=== PATIENT | male | born 1955 | race Caucasian/White ===

== ENCOUNTER 2021-10-26 04:28 | Inpatient (IN) | payer MEDICARE, OTHER ==
[2021-10-26] MEDS ORDERED: SODIUM CHLORIDE 0.9% 1,000 ML IV STA (04:31)
[2021-10-26] MEDS ORDERED: KETOROLAC 15 MG/ML 1 ML VIAL IVP STA (04:31)
--- NOTE | 2021-10-26 04:32 | ED ---
SOB HPI - General Stated Complaint: Shortness of Breath Time Seen by Provider: 10/26/21 04:30 Source: RN notes reviewed, old records reviewed Mode of arrival: EMS Limitations: no limitations - History of Present Illness Initial Comments: This is a 65-year-old male in some significant distress. Patient is very anxious shaky with shortness of breath. Having difficulty breathing that started earlier today, patient is a cigarette for alcohol withdrawal, 2 days coming off benzodiazepines. Patient is nauseous without vomiting feel sweaty without chest pain. Patient is without fevers. Unsure if he has coronavirus exposure not. No nausea vomiting or diarrhea currently. MD Complaint: shortness of breath, "asthma attack", anxiety -: hour(s) Radiation: back Severity scale (1-10): 7 Quality: throbbing Consistency: constant Improves With: nothing Worsens With: exertion, movement Known History Of: COPD, asthma Context: recent URI, anxiety, recent illness Associated Symptoms: fever, cough, nausea/vomiting Treatments Prior to Arrival: none - Related Data Home Medications Medication Instructions Recorded Confirmed Acetaminophen Tab [Tylenol] 650 mg PO Q4H PRN MDD 3 doses 10/26/21 10/26/21 Albuterol Nebulized [Ventolin 2.5 mg INHALATION RT-Q6H PRN 10/26/21 10/26/21 Nebulized] Apixaban [Eliquis] 5 mg PO BID 10/26/21 10/26/21 Calcium/Mag/Zinc/D 1 tab PO TID PRN 10/26/21 10/26/21 Chlorpheniramine Maleate 4 mg PO Q4H PRN 10/26/21 10/26/21 [Chlor-Trimeton] Furosemide [Lasix] 20 mg PO BID 10/26/21 10/26/21 Ibuprofen [Motrin Ib] 600 mg PO Q6H PRN 10/26/21 10/26/21 LORazepam [Ativan] 1 - 2 mg PO DIRECTED 10/26/21 10/26/21 Loperamide HCl [Imodium A-D] 4 mg PO QID PRN MDD 8 tablets 10/26/21 10/26/21 Metoprolol Succinate [Toprol XL] 25 mg PO DAILY 10/26/21 10/26/21 Multivitamins, Thera [Multivitamin 1 tab PO DAILY 10/26/21 10/26/21 (formulary)] Omeprazole [PriLOSEC] 20 mg PO BID 10/26/21 10/26/21 Ondansetron HCl [Zofran] 4 mg PO Q6H PRN 10/26/21 10/26/21 Pantoprazole Sodium [Protonix] 40 mg PO DAILY 10/26/21 10/26/21 Thiamine [Vitamin B-1] 100 mg PO DAILY 10/26/21 10/26/21 amLODIPine [Norvasc] 5 mg PO DAILY 10/26/21 10/26/21 busPIRone HCl [Buspar] 5 mg PO TID 10/26/21 10/26/21 cloNIDine HCL [Catapres] 0.1 - 0.3 mg PO DIRECTED PRN 10/26/21 10/26/21 traZODone HCL [Desyrel] 50 - 150 mg PO HS PRN 10/26/21 10/26/21 Allergies Allergy/AdvReac Type Severity Reaction Status Date / Time No Known Allergies Allergy Verified 10/26/21 07:08 Review of Systems ROS Statement: Those systems with pertinent positive or pertinent negative responses have been documented in the HPI. ROS Other: All systems not noted in ROS Statement are negative. General Exam General appearance: alert, in no apparent distress, anxious, in distress, cachectic Head exam: Present: atraumatic, normocephalic, normal inspection Eye exam: Present: normal appearance, PERRL, EOMI. Absent: scleral icterus, conjunctival injection, periorbital swelling ENT exam: Present: normal exam, mucous membranes moist Neck exam: Present: normal inspection. Absent: tenderness, meningismus, lymphadenopathy Respiratory exam: Present: respiratory distress, wheezes, accessory muscle use, decreased breath sounds, prolonged expiratory. Absent: rales, rhonchi, stridor Cardiovascular Exam: Present: regular rate, normal rhythm, normal heart sounds. Absent: systolic murmur, diastolic murmur, rubs, gallop, clicks GI/Abdominal exam: Present: soft, normal bowel sounds. Absent: distended, tenderness, guarding, rebound, rigid Extremities exam: Present: normal inspection, full ROM, normal capillary refill. Absent: tenderness, pedal edema, joint swelling, calf tenderness Back exam: Present: normal inspection Neurological exam: Present: alert, oriented X3, CN II-XII intact Psychiatric exam: Present: normal affect, normal mood Skin exam: Present: warm, dry, intact, normal color. Absent: rash Course Vital Signs 10/26/21 10/26/21 10/26/21 04:31 04:37 05:00 Temperature Pulse Rate 123 H 105 H Pulse Rate [ Pulse Oximetery ] Respiratory 34 H 32 H Rate Blood Pressure 146/102 Blood Pressure [Left Arm] O2 Sat by Pulse 93 L 94 L 95 Oximetry 10/26/21 10/26/21 10/26/21 05:10 05:26 05:44 Temperature Pulse Rate 98 92 Pulse Rate [ Pulse Oximetery ] Respiratory 22 Rate Blood Pressure Blood Pressure [Left Arm] O2 Sat by Pulse Oximetry 10/26/21 10/26/21 10/26/21 06:00 06:44 08:00 Temperature 97.6 F Pulse Rate 90 Pulse Rate [ 64 Pulse Oximetery ] Respiratory 20 26 H 18 Rate Blood Pressure 121/86 Blood Pressure 120/60 [Left Arm] O2 Sat by Pulse 97 98 Oximetry 10/26/21 10/26/21 10/26/21 08:29 08:38 14:10 Temperature 98.6 F Pulse Rate 104 H 104 H Pulse Rate [ 78 Pulse Oximetery ] Respiratory 18 Rate Blood Pressure Blood Pressure 132/91 [Left Arm] O2 Sat by Pulse 98 Oximetry 10/26/21 10/26/21 15:52 16:14 Temperature Pulse Rate 92 96 Pulse Rate [ Pulse Oximetery ] Respiratory Rate Blood Pressure Blood Pressure [Left Arm] O2 Sat by Pulse Oximetry - Reevaluation(s) Reevaluation #1: 10/26/21 05:50 Medical record is reviewed Reevaluation #2: 10/26/21 Patient symptoms are improved with breathing treatments here in the ER although still severe shortness of breath Patient informed results and questions answered Medical Decision Making - Medical Decision Making 65 male presenting to the emergency department today. Patient resents today for severe shortness of breath severe asthmatic COPD exacerbation. Hypoxia. Patient will be admitted for further monitoring and care - Lab Data Result diagrams: 10/26/21 04:51 10/26/21 04:41 Lab Results 10/26/21 10/26/21 10/26/21 Range/Units 04:41 04:51 04:51 WBC 7.8 (3.8-10.6) k/uL RBC 3.48 L (4.30-5.90) m/uL Hgb 11.6 L (13.0-17.5) gm/dL Hct 35.9 L (39.0-53.0) % MCV 103.2 H (80.0-100.0) fL MCH 33.5 (25.0-35.0) pg MCHC 32.4 (31.0-37.0) g/dL RDW 14.2 (11.5-15.5) % Plt Count 201 (150-450) k/uL MPV 8.3 Neutrophils % 76 % Lymphocytes % 11 % Monocytes % 9 % Eosinophils % 2 % Basophils % 0 % Neutrophils # 5.9 (1.3-7.7) k/uL Lymphocytes # 0.9 L (1.0-4.8) k/uL Monocytes # 0.7 (0-1.0) k/uL Eosinophils # 0.1 (0-0.7) k/uL Basophils # 0.0 (0-0.2) k/uL Macrocytosis Slight PT 10.9 (9.0-12.0) sec INR 1.0 (<1.2) APTT 27.1 (22.0-30.0) sec D-Dimer 0.82 H (<0.60) mg/L FEU Sodium 136 L (137-145) mmol/L Potassium 4.3 (3.5-5.1) mmol/L Chloride 110 H (98-107) mmol/L Carbon Dioxide 25 (22-30) mmol/L Anion Gap 1 mmol/L BUN 23 H (9-20) mg/dL Creatinine 0.91 (0.66-1.25) mg/dL Est GFR (CKD-EPI)AfAm >90 (>60 ml/min/1.73 sqM) Est GFR (CKD-EPI)NonAf 88 (>60 ml/min/1.73 sqM) Glucose 110 H (74-99) mg/dL Lactic Ac Sepsis Rflx Plasma Lactic Acid Ravin (0.7-2.0) mmol/L Calcium 8.3 L (8.4-10.2) mg/dL Magnesium 1.4 L (1.6-2.3) mg/dL Ferritin 145.0 (22.0-322.0) ng/mL Total Bilirubin 1.1 (0.2-1.3) mg/dL AST 59 (17-59) U/L ALT 48 (4-49) U/L Alkaline Phosphatase 122 (38-126) U/L Lactate Dehydrogenase 569 (313-618) U/L C-Reactive Protein 2.5 H (<1.0) mg/dL NT-Pro-B Natriuret Pep pg/mL Total Protein 5.9 L (6.3-8.2) g/dL Albumin 3.0 L (3.5-5.0) g/dL 10/26/21 10/26/21 10/26/21 Range/Units 04:51 04:51 05:36 WBC (3.8-10.6) k/uL RBC (4.30-5.90) m/uL Hgb (13.0-17.5) gm/dL Hct (39.0-53.0) % MCV (80.0-100.0) fL MCH (25.0-35.0) pg MCHC (31.0-37.0) g/dL RDW (11.5-15.5) % Plt Count (150-450) k/uL MPV Neutrophils % % Lymphocytes % % Monocytes % % Eosinophils % % Basophils % % Neutrophils # (1.3-7.7) k/uL Lymphocytes # (1.0-4.8) k/uL Monocytes # (0-1.0) k/uL Eosinophils # (0-0.7) k/uL Basophils # (0-0.2) k/uL Macrocytosis PT (9.0-12.0) sec INR (<1.2) APTT (22.0-30.0) sec D-Dimer (<0.60) mg/L FEU Sodium (137-145) mmol/L Potassium (3.5-5.1) mmol/L Chloride (98-107) mmol/L Carbon Dioxide (22-30) mmol/L Anion Gap mmol/L BUN (9-20) mg/dL Creatinine (0.66-1.25) mg/dL Est GFR (CKD-EPI)AfAm (>60 ml/min/1.73 sqM) Est GFR (CKD-EPI)NonAf (>60 ml/min/1.73 sqM) Glucose (74-99) mg/dL Lactic Ac Sepsis Rflx Y Plasma Lactic Acid Ravin 2.4 H* (0.7-2.0) mmol/L Calcium (8.4-10.2) mg/dL Magnesium (1.6-2.3) mg/dL Ferritin (22.0-322.0) ng/mL Total Bilirubin (0.2-1.3) mg/dL AST (17-59) U/L ALT (4-49) U/L Alkaline Phosphatase (38-126) U/L Lactate Dehydrogenase (313-618) U/L C-Reactive Protein (<1.0) mg/dL NT-Pro-B Natriuret Pep 93042 pg/mL Total Protein (6.3-8.2) g/dL Albumin (3.5-5.0) g/dL - EKG Data -: EKG Interpreted by Me (EKG shows sinus tachycardia 128 LA 142 QRS 104 QTc 455) - Radiology Data Radiology results: report reviewed (Chest x-ray CT chest negative for PE), image reviewed Critical Care Time Critical Care Time: Yes Total Critical Care Time: 31 Disposition Clinical Impression: Congestive heart failure, Acute exacerbation of chronic obstructive pulmonary disease, Hypoxia, Tachycardia, Anxiety Disposition: ADMITTED IP TO THIS HOSP Condition: Fair Is patient prescribed a controlled substance at d/c from ED?: No
[2021-10-26] MEDS ORDERED: IPRATROPIUM-ALBUTEROL 3 ML NEB INHALATION STA ×2 (04:52→06:27)
[2021-10-26] MEDS ORDERED: LORazepam 2 MG/ML INJ IV STA (04:52)
[2021-10-26] MEDS ORDERED: DIAZEPAM 5 MG/ML 2 ML INJ IVP STA (04:52)
[2021-10-26] MEDS ORDERED: methylPREDNISolone SOD SUCCI 125 MG/2 ML VIAL IV STA (04:53)
[2021-10-26] MEDS ORDERED: SODIUM CHLORIDE 0.9% 500 ML 500 ML IV STA (04:53)
[2021-10-26 05:10] LABS: Basophils % (A) 0 %; Eosinophils # (A) 0.1 k/uL (0-0.7); Eosinophils % (A) 2 %; HCT 35.9 % (39.0-53.0); HGB 11.6 gm/dL (13.0-17.5); Lymphocytes # (A) 0.9 k/uL (1.0-4.8); Lymphocytes % (A) 11 %; MCH 33.5 pg (25.0-35.0); MCHC 32.4 g/dL (31.0-37.0); MCV 103.2 fL (80.0-100.0); Macrocytosis Slight; Mean Platelet Volume 8.3; Monocytes # (A) 0.7 k/uL (0-1.0); Monocytes % (A) 9 %; Neutrophils # (A) 5.9 k/uL (1.3-7.7); Neutrophils % (A) 76 %; Platelet Count 201 k/uL (150-450); RBC 3.48 m/uL (4.30-5.90); RDW 14.2 % (11.5-15.5); WBC 7.8 k/uL (3.8-10.6)
[2021-10-26 05:24] LABS: Partial Thromboplastin Time 27.1 sec (22.0-30.0); Prothrombin Time 10.9 sec (9.0-12.0)
[2021-10-26 06:08] LABS: ALT 48 U/L (4-49); AST 59 U/L (17-59); African American GFR (CKD) >90 (>60 ml/min/1.73 sqM); Alkaline Phosphatase 122 U/L (38-126); Anion Gap 1 mmol/L; Blood Urea Nitrogen 23 mg/dL (9-20); Calcium 8.3 mg/dL (8.4-10.2); Carbon Dioxide 25 mmol/L (22-30); Chloride 110 mmol/L (98-107); Glucose 110 mg/dL (74-99); LDH 569 U/L (313-618); Magnesium 1.4 mg/dL (1.6-2.3); Non-African American GFR(CKD) 88 (>60 ml/min/1.73 sqM); Potassium 4.3 mmol/L (3.5-5.1); Sodium 136 mmol/L (137-145); Total Bilirubin 1.1 mg/dL (0.2-1.3); Total Protein 5.9 g/dL (6.3-8.2)
--- NOTE | 2021-10-26 06:08 | XR ---
EXAMINATION TYPE: XR chest 1V portable DATE OF EXAM: 10/26/2021 COMPARISON: NONE HISTORY: Cough TECHNIQUE: Single view FINDINGS: Heart is enlarged. There is coarse interstitial density in the mid and lower lung dorsey. T here is left axillary pacemaker. No definite pleural fluid seen. There are chest leads. IMPRESSION: Cardiomegaly. Pulmonary lower lobe predominantly interstitial infiltrates suggestive of s ome pneumonia. There is probably COPD. No obvious heart failure.
[2021-10-26] MEDS: SODIUM CHLORIDE 0.9% 1,000 ML IV SCH ×3 (06:16→21:01)
[2021-10-26] MEDS ORDERED: NALOXONE 0.4 MG/ML 1 ML VIAL IV PRN (06:27)
[2021-10-26] MEDS ORDERED: MORPHINE SULFATE 4 MG/ML SYRINGE IV PRN (06:27)
[2021-10-26] MEDS ORDERED: AZITHROMYCIN 500 MG in SODIUM CHLORIDE 0.9% 250 ML IVPB STA (06:31)
[2021-10-26] MEDS ORDERED: FUROSEMIDE 10 MG/ML 4 ML VIAL IV STA (06:31)
--- NOTE | 2021-10-26 07:45 | CT ---
CT CHEST FOR PULMONARY EMBOLISM. EXAMINATION TYPE: CT angio chest DATE OF EXAM: 10/26/2021 INDICATION: COVID +, Shortness of Breath CT DLP: 322.4 mGycm, Automated exposure control for dose reduction was used. CONTRAST: Patient injected with 87 ml mL of Isovue 370. COMPARISON: None TECHNIQUE: CT of the chest is performed on a spiral scan at 2 mm thick sections. Study is performed with intravenous contrast timed for evaluation for pulmonary embolism. This will limit additional po rtions of the evaluation. 3-D MIP images reconstructed by the technologist are reviewed on the compu ter in the coronal and sagittal planes. FINDINGS: No persistent filling defects are evident to suggest an acute pulmonary embolism. No mediastinal or hilar adenopathy enlarged by CT criteria is evident. The ascending aorta diameter at the level of the main pulmonary artery is 4.0 cm. The main pulmonary artery diameter at the bifur cation is 3.9 cm. Advanced emphysematous changes are evident. Minimal bilateral pleural effusions are present. Limited CT section through the upper abdomen are unremarkable. IMPRESSIONS: 1. No acute pulmonary emboli. 2. Minimal bilateral pleural effusions. 3. Advanced emphysematous changes
[2021-10-26] MEDS: ALBUTEROL NEBULIZED 2.5 MG/3 ML INHALATION SCH ×4 (08:25→19:40)
[2021-10-26 09:33] LABS: C Reactive Protein 2.5 mg/dL (<1.0)
[2021-10-26] MEDS: methylPREDNISolone SOD SUCCI 125 MG/2 ML VIAL IV SCH ×2 (11:24→18:04)
[2021-10-26] MEDS: LORazepam 2 MG/ML INJ IV PRN ×2 (14:09→21:02)
[2021-10-26] MEDS ORDERED: cloNIDine HCL 0.1 MG TAB PO PRN (15:54)
[2021-10-26] MEDS ORDERED: MAGNESIUM OXIDE 400 MG TAB PO STA (15:56)
--- NOTE | 2021-10-26 16:34 | HP ---
HISTORY AND PHYSICAL HISTORY OF PRESENT ILLNESS: 65-year-old white male, very anxious, shaky, shortness of breath, started today. He is a cigarette smoker, alcohol withdrawal, 2 days off coming off benzo's. He has nausea without vomiting, feels sweaty without chest pain without fevers. CT of his chest for chest pain shows significant emphysema. No aneurysms. He is admitted with hypoxemic respiratory failure, possible tracheobronchitis. REVIEW OF SYMPTOMS: 14-point review of systems otherwise negative. PHYSICAL EXAMINATION: He is alert, anxious. He is in some respiratory distress. Normocephalic, atraumatic. Pupils equal, round, reactive. ENT normal. Respiratory: Accessory muscle use. Prolonged expiratory. Cardiovascular: Regular rate. GI soft, nontender. Extremities: No cyanosis, clubbing, edema. Back: Normal inspection. Neurologic: Alert and oriented x3. Psych: Fair mood and affect. Skin: Warm and dry. Respiratory rate 22-34, pulse is 98-123, O2 94, hemoglobin 11.6, white count 7.8. ASSESSMENT AND PLAN: 1. Acute hypoxemic respiratory failure secondary to chronic obstructive pulmonary disease exacerbation. 2. Possible tracheobronchitis. 3. Hypomagnesemia. 4. Hypoalbuminemia. 5. Alcohol abuse. 6. Elevated D-dimer. 7. Negative for pulmonary embolism on CT scan of the chest. 8. Lactic acidosis secondary to dehydration. 9. Tracheobronchitis. 10.Alcohol withdrawal. 11.Metabolic acidosis. 12.Prognosis guarded. MMODL / IJN: [id number] /
[2021-10-26] MEDS: FUROSEMIDE 20 MG TAB PO SCH (16:44)
[2021-10-26] MEDS: busPIRone HCl 5 MG TAB PO SCH ×2 (16:45→21:01)
[2021-10-26] MEDS: traZODone HCL 50 MG TAB PO PRN (21:01)
[2021-10-26] MEDS: APIXABAN 5 MG TAB PO SCH (21:01)
[2021-10-27] MEDS: methylPREDNISolone SOD SUCCI 125 MG/2 ML VIAL IV SCH ×5 (00:35→23:11)
[2021-10-27] MEDS: SODIUM CHLORIDE 0.9% 1,000 ML IV SCH ×5 (05:11→23:04)
[2021-10-27] MEDS: LORazepam 2 MG/ML INJ IV PRN ×3 (07:12→21:15)
[2021-10-27] MEDS: AZITHROMYCIN 500 MG in SODIUM CHLORIDE 0.9% 250 ML IVPB SCH (07:26)
[2021-10-27] MEDS: FUROSEMIDE 20 MG TAB PO SCH (07:27)
[2021-10-27] MEDS: MULTIVITAMINS, THERA 1 EACH TAB PO SCH (07:27)
[2021-10-27] MEDS: busPIRone HCl 5 MG TAB PO SCH ×3 (07:27→21:04)
[2021-10-27] MEDS: APIXABAN 5 MG TAB PO SCH ×2 (07:27→19:58)
[2021-10-27] MEDS ORDERED: IBUPROFEN 600 MG TAB PO PRN (08:08)
[2021-10-27] MEDS ORDERED: ONDANSETRON 4 MG TAB PO PRN (08:08)
[2021-10-27] MEDS: PANTOPRAZOLE 40 MG TABLET PO SCH (08:22)
[2021-10-27] MEDS: THIAMINE 100 MG TAB PO SCH (08:22)
[2021-10-27] MEDS: ALBUTEROL NEBULIZED 2.5 MG/3 ML INHALATION SCH ×4 (08:49→20:35)
[2021-10-27 08:58] LABS: Basophils # (A) 0 X 10*3/uL (0.00-0.10); Basophils % (A) 0 %; Eosinophils # (A) 0 X 10*3/uL (0.04-0.35); Eosinophils % (A) 0 %; HCT 32.8 % (39.6-50.0); HGB 10.3 g/dL (13.0-17.0); Lymphocytes # (A) 0.26 X 10*3/uL (0.90-5.00); Lymphocytes % (A) 4.2 %; MCH 32.4 pg (27.0-32.0); MCHC 31.4 g/dL (32.0-37.0); MCV 103.1 fL (80.0-97.0); Monocytes # (A) 0.43 X 10*3/uL (0.20-1.00); Monocytes % (A) 6.9 %; Neutrophils # (A) 5.49 X 10*3/uL (1.80-7.70); Neutrophils % (A) 88.4 %; Platelet Count 214 X 10*3/uL (140-440); RBC 3.18 X 10*6/uL (4.40-5.60); RDW 14.7 % (11.5-14.5); WBC 6.21 X 10*3/uL (4.50-10.00)
[2021-10-27] MEDS ORDERED: amLODIPine 5 MG TAB PO SCH (09:00)
[2021-10-27] MEDS ORDERED: METOPROLOL SUCCINATE (ER) 25 MG TAB.ER.24H PO SCH (09:00)
[2021-10-27] MEDS: METOPROLOL TARTRATE 50 MG TAB PO SCH ×2 (09:41→19:58)
[2021-10-27] MEDS: FUROSEMIDE 10 MG/ML 4 ML VIAL IV SCH ×2 (09:51→20:00)
--- NOTE | 2021-10-27 10:15 | ECHOF ---
Referral Reason:chf MEASUREMENTS -------- HEIGHT: 180.3 cm WEIGHT: 65.8 kg BP: IVSd: 0.9 cm (0.6 - 1.1) LVIDd: 7.0 cm (3.9 - 5.3) LVPWd: 1.5 cm (0.6 - 1.1) IVSs: 0.9 cm LVIDs: 6.7 cm LVPWs: 1.2 cm Ao Diam: 3.8 cm (2.0 - 3.7) AV Cusp: 1.4 cm (1.5 - 2.6) LA Diam: 3.0 cm (2.7 - 3.8) MV EXCURSION: 11.540 mm (> 18.000) MV EF SLOPE: 77 mm/s (70 - 150) EPSS: 4.8 cm MV E Jose: 0.87 m/s MV DecT: 152 ms MV A Jose: 0.47 m/s MV E/A Ratio: 1.83 RAP: 5.00 mmHg RVSP: 26.20 mmHg FINDINGS -------- AICD This was a technically good study. The left ventricle is severely dilated. Left ventricular wall thickness is normal. There is sever e global hypokinesis of LV . Overall left ventricular systolic function is severely impaired with, an EF < 20%. The right ventricle is normal in size. The left atrial size is normal. The right atrial size is normal. The aortic valve is trileaflet and appears structurally normal. The mitral valve is normal. Mild mitral regurgitation is present. The tricuspid valve appears structurally normal. Mild tricuspid regurgitation present. Right vent ricular systolic pressure is normal at < 35 mmHg. There is no pulmonic regurgitation present. The aortic root size is normal. Normal inferior vena cava with normal inspiratory collapse consistent with estimated right atrial pre ssure of 5 mmHg. There is no pericardial effusion. CONCLUSIONS -------- 1. AICD 2. The left ventricle is severely dilated. 3. Left ventricular wall thickness is normal. 4. There is severe global hypokinesis of LV . 5. Overall left ventricular systolic function is severely impaired with, an EF < 20%. 6. Mild mitral regurgitation is present. 7. Mild tricuspid regurgitation present. 8. There is no pericardial effusion. PAINT SPRAYER SANDBLASTER: Shari Vásquez RDCS
[2021-10-27 10:28] LABS: ALT 45 U/L (10-49); AST 32 U/L (14-35); African American GFR (CKD) 108.3 (60.0-200.0); Albumin 3.5 g/dL (3.8-4.9); Alkaline Phosphatase 111 U/L (41-126); BUN/Creat Ratio 26.15 Ratio (12.00-20.00); Blood Urea Nitrogen 21.1 mg/dL (9.0-27.0); Calcium 8.3 mg/dL (8.7-10.3); Carbon Dioxide 20.5 mmol/L (20.0-27.5); Chloride 109 mmol/L (96-109); Globulin 2.3 g/dL (1.6-3.3); Glucose 143 mg/dL (70-110); Non-African American GFR(CKD) 93.4 (60.0-200.0); Potassium 4.2 mmol/L (3.5-5.5); Sodium 141 mmol/L (135-145); Total Bilirubin <0.20 mg/dL (0.30-1.20); Total Protein 5.8 g/dL (6.2-8.2)
--- NOTE | 2021-10-27 10:50 | PN ---
PROGRESS NOTE Patient came in with shortness of breath, cough, congestion, history of COPD, recurrent tracheobronchitis. He is saturating 96% on 3 L. Blood pressure 132/78, pulse is low 100s, temp 97 to 98, respiratory 16 to 18. Lungs are mostly clear. Cardiovascular S1, S2. Hematology negative Homans. Psych: Fair mood and affect. ASSESSMENT: 1. History of erosive esophagitis and Gurrola's esophagus. 2. Chronic obstructive pulmonary disease exacerbation. 3. He has history of gastroesophageal reflux disease. 4. Nicotine addiction. 5. Alcohol addiction. Before she goes to [place], lactic acidosis improved. Current lactic acid 1.6. Elevated D-dimer. CT scan is negative for pneumonia or pulmonary embolism. Continue with treatment with steroids, updraft treatments. He is COVID negative. BNP is 43,300. Await for Cardiology recommendations. Possible diastolic heart failure, possibly run an echo. Get cardiology's recommendations. At this point prognosis guarded. MMODL / IJN: [id number] /
[2021-10-27] MEDS: SACUBITRIL/VALSARTAN 24 MG-26 MG TABLET PO SCH ×2 (11:05→19:59)
--- NOTE | 2021-10-27 12:17 | CONS ---
CONSULTATION Sarabjit Lindsey is a 65-year-old gentleman who generally has his health care in the [place] area. He was in [facility] under the care of a sat tutor whose name he does not recall. He came into the hospital anxious, shaky, short of breath, and indicated that he drinks alcohol quite a bit and smokes regularly and also coming off benzodiazepines. He feels he is having withdrawal, was nauseous and shaky. After arrival he complained of continued shortness of breath. On probing further, his history suggests that of heart failure. He had a defibrillator placed 3 to 4 months ago and takes Entresto. However, at the time of my evaluation he is anxious, slightly tremulous, but definitely not in any distress. He has no chest pain or shortness of breath. PAST MEDICAL HISTORY: Based on available information, which is not very extensive, he has what seems to be nonischemic cardiomyopathy with a defibrillator. He also has alcoholism, smoking, COPD, bronchial asthma. MEDICATIONS: Medications at home include Entresto, Eliquis 5 mg b.i.d., Lasix 20 mg b.i.d., metoprolol succinate 25 mg daily. He takes omeprazole, amlodipine 5 mg daily and also takes vitamin supplements and thiamine. ALLERGIES: NONE. REVIEW OF SYSTEMS: Unremarkable other than above-mentioned facts. PHYSICAL EXAMINATION: On examination, blood pressure is 130/70, pulse rate is about 100 per minute and appears to be irregular. HEENT unremarkable. Fundus was not examined by me. Neck is supple. There is no significant JVD. Heart exam reveals S1, S2 with tachycardia, short systolic murmur at left sternal border. No gallops. Lungs reveal bilateral diminished air entry. Abdomen is soft, nontender. Lower extremities reveal diminished pulses. Central nervous system grossly no focal deficits. EKG revealed sinus tachycardia, leftward axis, nonspecific ST and T-wave changes. LABORATORY DATA: His renal function is normal. His BNP is elevated to 43,000, his D-dimer is 0.82. His hemoglobin is 10.3. He had a CT angiogram performed which revealed no evidence of pulmonary embolism, minimal bilateral pleural effusions and advanced emphysematous changes. IMPRESSION: 1. Chronic systolic heart failure. 2. Alcoholism. 3. History of smoking. 4. Patient has a defibrillator; probably nonischemic cardiomyopathy, not verified. RECOMMENDATIONS: I would recommend cautious diuresis with Lasix 40 mg q.12 hours. Will resume Entresto at 24/ b.i.d. Continue apixaban and increase the metoprolol to 50 mg b.i.d. Based on clinical course, we will make further recommendations. Prognosis remains guarded. Patient's PCP/admitting doctor is also cognizant of his alcohol situation and he is following him in that regard. No other intervention, but we will follow him closely. Echocardiogram has been advised. Thank you very much for the consult. PEPE / IJN: [id number] /
[2021-10-27] MEDS ORDERED: FUROSEMIDE 10 MG/ML 2 ML VIAL IV SCH (21:00)
[2021-10-27] MEDS: traZODone HCL 50 MG TAB PO PRN (21:15)
[2021-10-28] MEDS: LORazepam 2 MG/ML INJ IV PRN ×3 (04:33→19:01)
[2021-10-28] MEDS: methylPREDNISolone SOD SUCCI 125 MG/2 ML VIAL IV SCH ×3 (05:41→17:02)
[2021-10-28] MEDS: ALBUTEROL NEBULIZED 2.5 MG/3 ML INHALATION SCH ×4 (07:38→21:28)
[2021-10-28] MEDS: FUROSEMIDE 10 MG/ML 4 ML VIAL IV SCH ×2 (08:22→17:02)
[2021-10-28] MEDS: PANTOPRAZOLE 40 MG TABLET PO SCH ×2 (08:22→08:24)
[2021-10-28] MEDS: APIXABAN 5 MG TAB PO SCH ×2 (08:22→21:40)
[2021-10-28] MEDS: AZITHROMYCIN 500 MG in SODIUM CHLORIDE 0.9% 250 ML IVPB SCH (08:23)
[2021-10-28] MEDS: busPIRone HCl 5 MG TAB PO SCH ×3 (08:24→21:40)
[2021-10-28 09:18] LABS: Basophils % (A) 0 %; Eosinophils % (A) 0 %; HCT 34.7 % (39.0-53.0); Lymphocytes # (A) 0.3 k/uL (1.0-4.8); Lymphocytes % (A) 4 %; MCH 33.5 pg (25.0-35.0); MCHC 31.8 g/dL (31.0-37.0); MCV 105.5 fL (80.0-100.0); Macrocytosis Moderate; Mean Platelet Volume 7.6; Monocytes # (A) 0.5 k/uL (0-1.0); Monocytes % (A) 7 %; Neutrophils # (A) 6.9 k/uL (1.3-7.7); Neutrophils % (A) 88 %; Platelet Count 300 k/uL (150-450); RBC 3.29 m/uL (4.30-5.90); RDW 14.7 % (11.5-15.5); WBC 7.8 k/uL (3.8-10.6)
[2021-10-28] MEDS: MULTIVITAMINS, THERA 1 EACH TAB PO SCH (09:31)
[2021-10-28] MEDS: THIAMINE 100 MG TAB PO SCH (09:31)
[2021-10-28] MEDS: SACUBITRIL/VALSARTAN 24 MG-26 MG TABLET PO SCH (09:31)
[2021-10-28] MEDS: METOPROLOL TARTRATE 50 MG TAB PO SCH ×2 (09:31→21:40)
[2021-10-28 09:53] LABS: ALT 61 U/L (4-49); AST 46 U/L (17-59); African American GFR (CKD) >90 (>60 ml/min/1.73 sqM); Albumin 3.1 g/dL (3.5-5.0); Albumin/Globulin Ratio 1.1; Alkaline Phosphatase 100 U/L (38-126); Anion Gap 6 mmol/L; Blood Urea Nitrogen 25 mg/dL (9-20); Calcium 8.4 mg/dL (8.4-10.2); Carbon Dioxide 25 mmol/L (22-30); Chloride 107 mmol/L (98-107); Globulin 2.9 g/dL; Glucose 182 mg/dL (74-99); Non-African American GFR(CKD) 80 (>60 ml/min/1.73 sqM); Potassium 4.4 mmol/L (3.5-5.1); Sodium 138 mmol/L (137-145); Total Bilirubin 0.3 mg/dL (0.2-1.3)
[2021-10-28] MEDS: SPIRONOLACTONE 25 MG TAB PO SCH (10:06)
[2021-10-28] MEDS: SODIUM CHLORIDE 0.9% 1,000 ML IV SCH ×2 (11:48→20:45)
--- NOTE | 2021-10-28 12:00 | PN ---
PROGRESS NOTE Mr. Lindsey feels a little bit better today. He is slightly less short of breath at rest, but with activity he still has shortness of breath. He remains in sinus rhythm. Heart rate is somewhat slower today compared to yesterday. There is JVD of 1 cm. No carotid bruit. S1-S2 heard normally. Short systolic murmur noted at left sternal border. Lungs reveal fine rales over both bases. Abdomen is soft, nontender. Lower extremities reveal no edema. Central nervous system normal. IMPRESSION: 1. Exacerbation of systolic heart failure in a patient with probable nonischemic cardiomyopathy with history of alcoholism. 2. Paroxysmal atrial fibrillation. RECOMMENDATIONS: I am recommending that we will increase the Lasix to 40 mg IV push q.8 hours and add Aldactone 25 mg daily, continue Entresto and also his metoprolol as before. I will also increase the Entresto to 49/51 and see how he does. Discussed my thoughts in detail with the patient. He has an ICD. Prognosis is poor overall. Patient advised to quit alcohol. MMODL / IJN: [id number] /
--- NOTE | 2021-10-28 19:51 | PN ---
PROGRESS NOTE Sarabjit Lindsey is a 65-year-old white male who came in with cough, congestion, shortness of breath. He has a systolic heart failure with ejection fraction in the low 20s to 30s. They increased his Lasix for exacerbation of systolic heart failure, nonischemic cardiomyopathy, paroxysmal atrial fibrillation. They increased the Lasix to 40 mg IV q.8 hours and Aldactone. Continue on his Entresto, metoprolol. Cardiovascular S1-S2. Lungs clear. GI soft. Hematology negative Homans. Psych fair mood and affect. Assessment . CT of the chest shows pleural effusions, emphysema. No PE. Continue on current treatments. Possibly discharge home once cleared by Cardiology. MMODL / IJN: [id number] /
[2021-10-28] MEDS: traZODone HCL 50 MG TAB PO PRN (21:43)
[2021-10-28] MEDS: SACUBITRIL/VALSARTAN 49 MG-51 MG TABLET PO SCH (21:45)
[2021-10-29] MEDS: FUROSEMIDE 10 MG/ML 4 ML VIAL IV SCH ×3 (00:53→16:42)
[2021-10-29] MEDS: methylPREDNISolone SOD SUCCI 125 MG/2 ML VIAL IV SCH ×4 (00:54→16:42)
[2021-10-29] MEDS: LORazepam 2 MG/ML INJ IV PRN ×4 (01:05→21:41)
[2021-10-29] MEDS: ALBUTEROL NEBULIZED 2.5 MG/3 ML INHALATION SCH ×4 (08:00→20:07)
[2021-10-29] MEDS: THIAMINE 100 MG TAB PO SCH (09:33)
[2021-10-29] MEDS: SACUBITRIL/VALSARTAN 49 MG-51 MG TABLET PO SCH ×2 (09:33→21:42)
[2021-10-29] MEDS: MULTIVITAMINS, THERA 1 EACH TAB PO SCH (09:33)
[2021-10-29] MEDS: APIXABAN 5 MG TAB PO SCH ×2 (09:34→21:42)
[2021-10-29] MEDS: SPIRONOLACTONE 25 MG TAB PO SCH (09:34)
[2021-10-29] MEDS: busPIRone HCl 5 MG TAB PO SCH ×3 (09:34→21:42)
[2021-10-29] MEDS: METOPROLOL TARTRATE 50 MG TAB PO SCH ×2 (09:34→21:42)
[2021-10-29] MEDS: AZITHROMYCIN 500 MG in SODIUM CHLORIDE 0.9% 250 ML IVPB SCH (09:35)
--- NOTE | 2021-10-29 12:13 | PN ---
PROGRESS NOTE Sarabjit is a 65-year-old gentleman with history of ETOH abuse who was at [facility], possible nonischemic cardiomyopathy with severe LV dysfunction, status post AICD and optimal medical therapy for congestive heart failure, who presented to hospital with acute exacerbation of chronic systolic heart failure. He was evaluated by my associate, Dr. Weller, underwent an echocardiogram that showed severe LV systolic dysfunction, and he is currently on intravenous diuretics. He is making slow but steady recovery. He does not have any leg edema. His shortness of breath has improved. On exam today, he is afebrile. Heart rate is 84 beats per minute. Blood pressure is 140/90. Respiratory rate is 18. Oxygen saturation is 91% on 2 L. There is no jugular venous distention. Carotid upstroke is normal. There is no bruit. Chest exam reveals good air entry bilaterally. Heart exam reveals first and second heart sounds. Systolic murmur at the left lower sternal border. Abdomen is soft. Examination of extremities did not reveal any edema. Peripheral pulses are felt. Labs show that hemoglobin is 11, potassium is 4.4, creatinine is 0.9. AST and ALT are elevated. Coronavirus is negative. ASSESSMENT: 1. Acute exacerbation of chronic systolic heart failure. 2. Possible nonischemic cardiomyopathy with severe left ventricular dysfunction. 3. Status post AICD. PLAN: Patient is feeling much better. I will continue him on IV diuretics for another day. Hopefully we can switch him to p.o. Lasix tomorrow. MMODL / IJN: [id number] /
[2021-10-29] MEDS: BUDESONIDE 0.5 MG/2 ML NEBU INHALATION SCH (20:07)
--- NOTE | 2021-10-29 20:51 | PN ---
PROGRESS NOTE 65-year-old white male with alcoholism, systolic CHF, pulmonary fibrosis, tracheobronchitis. Remains on Rocephin, Azithromycin. Cardiology is giving him IV Lasix for systolic heart failure. He remains on Entresto, Aldactone, Lopressor, and Lasix 40 IV q.8h. Seen by gun barrel finisher today. His recommendations. His lungs show a mild wheeze. Cardiovascular S1, S2. Abdomen is soft. Neurologic: Mild tremor. Hemoglobin 11. Potassium 4.4, creatinine 0.9. ASSESSMENT: 1. Acute exacerbation of chronic systolic heart failure. 2. Chronic obstructive pulmonary disease exacerbation. 3. Tracheobronchitis. 4. Status post AICD. 5. Severe LV dysfunction. IV Lasix for another daily, possible go home on oral Lasix tomorrow, possibly. MMODL / IJN: [id number] /
[2021-10-29] MEDS: traZODone HCL 50 MG TAB PO PRN (21:41)
[2021-10-30] MEDS: methylPREDNISolone SOD SUCCI 125 MG/2 ML VIAL IV SCH ×3 (00:22→12:43)
[2021-10-30] MEDS: FUROSEMIDE 10 MG/ML 4 ML VIAL IV SCH ×2 (00:22→08:01)
[2021-10-30] MEDS: AZITHROMYCIN 500 MG in SODIUM CHLORIDE 0.9% 250 ML IVPB SCH (08:01)
[2021-10-30] MEDS: METOPROLOL TARTRATE 50 MG TAB PO SCH ×2 (08:01→21:51)
[2021-10-30] MEDS: PANTOPRAZOLE 40 MG TABLET PO SCH (08:02)
[2021-10-30] MEDS: APIXABAN 5 MG TAB PO SCH ×2 (08:02→21:51)
[2021-10-30] MEDS: SPIRONOLACTONE 25 MG TAB PO SCH (08:02)
[2021-10-30] MEDS: THIAMINE 100 MG TAB PO SCH (08:02)
[2021-10-30] MEDS: SACUBITRIL/VALSARTAN 49 MG-51 MG TABLET PO SCH ×2 (08:03→21:51)
[2021-10-30] MEDS: busPIRone HCl 5 MG TAB PO SCH ×3 (08:03→21:51)
[2021-10-30] MEDS: MULTIVITAMINS, THERA 1 EACH TAB PO SCH (08:03)
[2021-10-30] MEDS: LORazepam 2 MG/ML INJ IV PRN ×2 (08:22→21:52)
[2021-10-30 09:11] LABS: Basophils # (A) 0 X 10*3/uL (0.00-0.10); Basophils % (A) 0 %; Eosinophils # (A) 0 X 10*3/uL (0.04-0.35); Eosinophils % (A) 0 %; HGB 10.6 g/dL (13.0-17.0); Lymphocytes # (A) 0.27 X 10*3/uL (0.90-5.00); Lymphocytes % (A) 6.2 %; MCH 32.8 pg (27.0-32.0); MCHC 33.1 g/dL (32.0-37.0); MCV 99.1 fL (80.0-97.0); Mean Platelet Volume 9.7 fL (9.5-12.2); Monocytes % (A) 9.1 %; Neutrophils # (A) 3.66 X 10*3/uL (1.80-7.70); Neutrophils % (A) 83.6 %; Platelet Count 319 X 10*3/uL (140-440); RBC 3.23 X 10*6/uL (4.40-5.60); RDW 13.9 % (11.5-14.5); WBC 4.38 X 10*3/uL (4.50-10.00)
[2021-10-30 09:40] LABS: ALT 52 U/L (10-49); AST 21 U/L (14-35); African American GFR (CKD) 81.2 (60.0-200.0); Albumin 3.1 g/dL (3.8-4.9); Albumin/Globulin Ratio 1.63 (1.60-3.17); Alkaline Phosphatase 81 U/L (41-126); BUN/Creat Ratio 28.45 Ratio (12.00-20.00); Blood Urea Nitrogen 31.3 mg/dL (9.0-27.0); Calcium 7.9 mg/dL (8.7-10.3); Carbon Dioxide 28.9 mmol/L (20.0-27.5); Chloride 98 mmol/L (96-109); Globulin 1.9 g/dL (1.6-3.3); Glucose 157 mg/dL (70-110); Non-African American GFR(CKD) 70.1 (60.0-200.0); Potassium 3.8 mmol/L (3.5-5.5); Sodium 138 mmol/L (135-145); Total Bilirubin <0.20 mg/dL (0.30-1.20)
[2021-10-30] MEDS: ALBUTEROL NEBULIZED 2.5 MG/3 ML INHALATION SCH ×4 (10:58→18:55)
[2021-10-30] MEDS: BUDESONIDE 0.5 MG/2 ML NEBU INHALATION SCH ×2 (11:00→18:55)
[2021-10-30] MEDS: predniSONE 20 MG TAB PO SCH (12:46)
--- NOTE | 2021-10-30 16:02 | P.PN ---
Progress Note - Text Progress Note Date: 10/30/21 Hospital course: I'm rounding for Dr. Sarabjit Rivera. Admitted with CHF exacerbation. October 30: Sitting up in bed. Oral intake good. Did walk to the bathroom. Breathing much improved. Patient states that his scar is at [place]. No cough. No sputum. Patient's IV Solu-Medrol be changed to oral prednisone. IV Lasix will be changed to by mouth Lasix. Review of systems: Was done for constitutional, cardiovascular, GI, pulmonary. relevant finding as above Active Medications Albuterol Sulfate (Albuterol Nebulized 2.5 Mg/3 Ml) 5 mg INHALATION RT-QID [facility] Last Admin: 10/30/21 15:09 Dose: 5 mg Documented by: Apixaban (Apixaban 5 Mg Tab) 5 mg PO BID [facility]; Protocol Last Admin: 10/30/21 08:02 Dose: 5 mg Documented by: Budesonide (Budesonide 0.5 Mg/2 Ml Nebu) 0.5 mg INHALATION RT-BID [facility] Last Admin: 10/30/21 11:00 Dose: 0.5 mg Documented by: Buspirone HCl (Buspirone Hcl 5 Mg Tab) 5 mg PO TID [facility] Last Admin: 10/30/21 08:03 Dose: 5 mg Documented by: Furosemide (Furosemide 40 Mg Tab) 40 mg PO BID@0900,1600 [facility] Ibuprofen (Ibuprofen 600 Mg Tab) 600 mg PO Q6H PRN PRN Reason: Pain or Fever > 100.5 Lorazepam (Lorazepam 2 Mg/Ml Inj) 1 mg IV Q6HR PRN PRN Reason: Anxiety Last Admin: 10/30/21 08:22 Dose: 1 mg Documented by: Metoprolol Tartrate (Metoprolol Tartrate 50 Mg Tab) 50 mg PO BID [facility] Last Admin: 10/30/21 08:01 Dose: 50 mg Documented by: Multivitamins (Multivitamins, Thera 1 Each Tab) 1 each PO DAILY [facility] Last Admin: 10/30/21 08:03 Dose: 1 each Documented by: Naloxone HCl (Naloxone 0.4 Mg/Ml 1 Ml Vial) 0.2 mg IV Q2M PRN PRN Reason: Opioid Reversal Ondansetron HCl (Ondansetron 4 Mg Tab) 4 mg PO Q6H PRN PRN Reason: Nausea And Vomiting Pantoprazole Sodium (Pantoprazole 40 Mg Tablet) 40 mg PO AC-BRKFST [facility] Last Admin: 10/30/21 08:02 Dose: 40 mg Documented by: Prednisone (Prednisone 20 Mg Tab) 40 mg PO DAILY [facility] Last Admin: 10/30/21 12:46 Dose: 40 mg Documented by: Sacubitril/Valsartan (Sacubitril/Valsartan 49 Mg-51 Mg Tablet) 1 each PO BID [facility] Last Admin: 10/30/21 08:03 Dose: 1 each Documented by: Spironolactone (Spironolactone 25 Mg Tab) 25 mg PO DAILY [facility] Last Admin: 10/30/21 08:02 Dose: 25 mg Documented by: Thiamine HCl (Thiamine 100 Mg Tab) 100 mg PO DAILY [facility] Last Admin: 10/30/21 08:02 Dose: 100 mg Documented by: Trazodone HCl (Trazodone Hcl 50 Mg Tab) 50 - 150 mg PO HS PRN PRN Reason: Insomnia Last Admin: 10/29/21 21:41 Dose: 150 mg Documented by: On examination: VITAL SIGNS: 98.1, 74, 18, 136/90, 95% room air GENERAL APPEARANCE: Propped up in bed, eating lunch, comfortable HEENT: Normal external appearance of nose and ear. Oral cavity normal EYES: Pupils equal. Conjunctiva normal. NECK: JVD not raised. Mass not palpable. RESPIRATORY: Respiratory effort normal. Lungs fair air entry CARDIOVASCULAR: First and second sounds normal. No edema. ABDOMEN: Soft. Liver and spleen not palpable. No tenderness. No mass palpable. PSYCHIATRY: Alert and oriented x3. Mood and affect normal. INVESTIGATIONS, reviewed in the clinical context: White count 4.38 hemoglobin 10.6 platelets 319 potassium 3.8 creatinine 1.1 AST 21 ALT 52 Assessment and plan: -Acute on chronic congestive heart failure exacerbation of nonischemic cardiomyopathy from systolic dysfunction EF less than 20%: Better DC IV Lasix. By mouth Lasix 40 mg twice a day. Entresto. Aldactone. -Essential hypertension Entresto. Lopressor 50 mg twice a day. -COPD exacerbation in a smoker. Better Ventolin nebulizer. DC IV Solu-Medrol. Oral prednisone. -AICD -Chronic nicotine dependence, cigarette smoker Nicotine patch -Alcohol use disorder Patient is to return to [place]. Patient doing better. DC IV Solu-Medrol. DC IV Lasix. Oral prednisone. Oral Lasix. Patient has a scar at the [place]. manager pharmaceutical to help coordinate this same. Hopefully can be discharged tomorrow. Discussed with patient.
[2021-10-30] MEDS: FUROSEMIDE 40 MG TAB PO SCH (16:05)
--- NOTE | 2021-10-30 16:13 | PN ---
PROGRESS NOTE This is a 65-year-old gentleman who is admitted to hospital from [facility] secondary to acute exacerbation of chronic systolic heart failure. Patient is feeling better this morning. Blood pressure is good. He is tolerating all his medications, including the Entresto. On exam, comfortable at rest. Vital signs are stable. There is no jugular venous distention. Carotid upstroke is normal. Chest exam reveals good air entry bilaterally. Heart exam reveals first and second heart sounds. No gallop. No murmur. Abdomen is soft. Examination of extremities did not reveal any edema. Peripheral pulses are felt. Labs show a potassium of 3.8, creatinine is 1.1, hemoglobin is 10.6. ASSESSMENT: 1. Acute exacerbation of chronic systolic heart failure. 2. Nonischemic cardiomyopathy. PLAN: Patient is doing well. Stable for discharge. MMODL / IJN: [id number] /
[2021-10-30] MEDS: NICOTINE 7MG/24HR PATCH TRANSDERM SCH (16:55)
[2021-10-30] MEDS: traZODone HCL 50 MG TAB PO PRN (21:51)
[2021-10-31] MEDS: LORazepam 2 MG/ML INJ IV PRN (06:22)
[2021-10-31] MEDS: BUDESONIDE 0.5 MG/2 ML NEBU INHALATION SCH (08:37)
[2021-10-31] MEDS: ALBUTEROL NEBULIZED 2.5 MG/3 ML INHALATION SCH ×3 (08:37→15:40)
[2021-10-31] MEDS: METOPROLOL TARTRATE 50 MG TAB PO SCH (08:52)
[2021-10-31] MEDS: FUROSEMIDE 40 MG TAB PO SCH ×2 (08:52→17:32)
[2021-10-31] MEDS: predniSONE 20 MG TAB PO SCH (08:52)
[2021-10-31] MEDS: MULTIVITAMINS, THERA 1 EACH TAB PO SCH (08:53)
[2021-10-31] MEDS: NICOTINE 7MG/24HR PATCH TRANSDERM SCH (08:53)
[2021-10-31] MEDS: busPIRone HCl 5 MG TAB PO SCH ×2 (08:53→17:32)
[2021-10-31] MEDS: PANTOPRAZOLE 40 MG TABLET PO SCH (08:53)
[2021-10-31] MEDS: SPIRONOLACTONE 25 MG TAB PO SCH (08:53)
[2021-10-31] MEDS: SACUBITRIL/VALSARTAN 49 MG-51 MG TABLET PO SCH (08:53)
[2021-10-31] MEDS: APIXABAN 5 MG TAB PO SCH (08:53)
[2021-10-31] MEDS: THIAMINE 100 MG TAB PO SCH (08:53)
[2021-10-31] MEDS ORDERED: LORazepam 1 MG TAB PO PRN (14:17)
[2021-10-31 15:14] VITALS: BP 125/75; RESP 15; TEMP 98.4
[2021-10-31 15:50] VITALS: PULSE 82
== END 2021-10-31 18:53 | disposition other institution (70) | DRG 291 ==
LOC: EC 04:28 → 4SSUR 06:28
PROVIDERS: ADMIT Family Medicine; ATTEND Family Medicine
DX: I11.0 Hypertensive heart disease with heart failure (principal); I50.23 Acute on chronic systolic (congestive) heart failure; J96.01 Acute respiratory failure with hypoxia; E87.2 Acidosis; F10.239 Alcohol dependence with withdrawal, unspecified; J43.9 Emphysema, unspecified; I42.8 Other cardiomyopathies; E83.42 Hypomagnesemia; E86.0 Dehydration; E88.09 Other disorders of plasma-protein metabolism, not elsewhere classified; F17.210 Nicotine dependence, cigarettes, uncomplicated; F41.9 Anxiety disorder, unspecified; I48.0 Paroxysmal atrial fibrillation; J84.10 Pulmonary fibrosis, unspecified; K22.70 Barrett's esophagus without dysplasia; Z20.822 Contact with and (suspected) exposure to COVID-19; Z79.01 Long term (current) use of anticoagulants; Z79.899 Other long term (current) drug therapy; Z87.19 Personal history of other diseases of the digestive system; Z95.810 Presence of automatic (implantable) cardiac defibrillator; F32.9 Major depressive disorder, single episode, unspecified; K21.9 Gastro-esophageal reflux disease without esophagitis; R74.01 Elevation of levels of liver transaminase levels; R79.89 Other specified abnormal findings of blood chemistry
CPT/HCPCS: 36415; 71045; 71275; 80053; 82728; 83605; 83615; 83735; 83880; 85025; 85379; 85610; 85730; 86140; 87635; 93005; 93306; 94640; 94760; 96361; 96365; 96366; 96367; 96375; 96376; 99291